=== PATIENT | male | born 1955 | race Caucasian/White ===

== ENCOUNTER 2019-01-22 10:06 | Emergency (ER) | payer OTHER ==
[2019-01-22] MEDS ORDERED: Ketorolac 30 MG/ML SDV IVPUSH ONE (11:36)
[2019-01-22] MEDS ORDERED: Metoclopramide 10 MG/2 ML SDV IVPUSH ONE (11:36)
[2019-01-22] MEDS ORDERED: Sodium Chloride 0.9% 10 ML Syringe FLUSH PRN (11:36)
[2019-01-22] MEDS ORDERED: Sodium Chloride 0.9% 1,000 ML IV ONE (11:36)
[2019-01-22 11:52] LABS: ANION GAP 12.5; CHLORIDE,CL 110 mmol/L (101-111); SODIUM,NA 138 mmol/L (135-145)
--- NOTE | 2019-01-22 13:10 | EDM.PDOC ---
Scribed by Tosha Sierra 01/22/19 [id number] for Kristan Carreon NP ED HPI GENERAL MEDICAL PROBLEM - General Chief Complaint: Headache Stated Complaint: MIGRAINE Time Seen by Provider: 01/22/19 11:30 Source of Information: Reports: Patient, RN, RN Notes Reviewed History Limitations: Reports: No Limitations - History of Present Illness INITIAL COMMENTS - FREE TEXT/NARRATIVE: Patient is a 63-year-old with a headache. He has a history of migraines that started at 3 a.m. It is on the left side of the head, stabbing, nonradiating and 9/10 in severity. No known alleviator/aggravators. He has had nausea and vomiting, no blood. He is dizzy and unsteady. This is not his typical migraine, this is worse. This is not the worst headache of his life. No aura, vision changes, numbness/weakness. HE has had no fever, chills, chest pain or shortness of breath. Onset: Today Duration: Getting Worse Location: Reports: Head Quality: Reports: Ache, Stabbing Severity: Severe Improves with: Reports: None Worsens with: Reports: None Associated Symptoms: Reports: No Other Symptoms Left Head Pain Score (Numeric/FACES): 8 - Related Data Allergies Allergy/AdvReac Type Severity Reaction Status Date / Time No Known Allergies Allergy Verified 01/22/19 10:30 Home Meds: Home Meds Levothyroxine [Synthroid] 50 mcg PO DAILY 01/22/19 [History] Ondansetron [Zofran ODT] 4 mg PO Q4HR PRN 01/22/19 [History] SUMAtriptan Succinate [Imitrex] 100 mg PO BID PRN 01/22/19 [History] Past Medical History HEENT History: Reports: Impaired Vision, Other (See Below) (migraine headache) Neurological History: Reports: Migraines - Past Surgical History Neurological Surgical History: Reports: Other (See Below) (spinal fusion) Musculoskeletal Surgical History: Reports: Other (See Below) Other Musculoskeletal Surgeries/Procedures:: neck fusion Social & Family History - Tobacco Use Smoking Status *Q: Never Smoker Second Hand Smoke Exposure: No - Caffeine Use Caffeine Use: Reports: Coffee - Recreational Drug Use Recreational Drug Use: Yes ED ROS GENERAL - Review of Systems Review Of Systems: ROS reveals no pertinent complaints other than HPI. - Physical Exam Exam: See Below Exam Limited By: No Limitations General Appearance: Alert, WD/WN, No Apparent Distress Eye Exam: Bilateral Eye: EOMI, Normal Inspection, PERRL Ears: Normal External Exam, Normal Canal, Hearing Grossly Normal, Normal TMs Nose: Normal Inspection, Normal Mucosa, No Blood Throat/Mouth: Normal Inspection, Normal Lips, Normal Teeth, Normal Gums, Normal Oropharynx, Normal Voice, No Airway Compromise Head Exam: Atraumatic, Normocephalic Neck: Normal Inspection, Supple, Non-Tender, Full Range of Motion Respiratory/Chest: No Respiratory Distress, Lungs Clear, Normal Breath Sounds, No Accessory Muscle Use, Chest Non-Tender Cardiovascular: Normal Peripheral Pulses, Regular Rate, Rhythm, No Edema, No Gallop, No JVD, No Murmur, No Rub GI/Abdominal: Normal Bowel Sounds, Soft, Non-Tender, No Organomegaly, No Distention, No Abnormal Bruit, No Mass (Male) Exam: Deferred Rectal (Males) Exam: Deferred Neuro Exam (Abbreviated): Alert, Oriented, CN II-XII Intact, Normal Cognition, Normal Gait, Normal Reflexes, No Motor/Sensory Deficits Back Exam: Normal Inspection, Full Range of Motion, NT Extremities: Normal Inspection, Normal Range of Motion, Non-Tender, No Pedal Edema, Normal Capillary Refill Psychiatric: Normal Affect Skin Exam: Warm, Dry, Intact, Normal Color, No Rash Course - Vital Signs Last Recorded V/S: Last Vital Signs Temp 96.5 F 01/22/19 10:31 Pulse 53 L 01/22/19 10:31 Resp 20 01/22/19 10:31 BP 142/75 H 01/22/19 10:31 Pulse Ox 100 01/22/19 10:31 - Orders/Labs/Meds Orders: Active Orders 24 hr Category Date Time Status Peripheral IV Care [RC] . DIRECTED Care 01/22/19 11:37 Active Sodium Chloride 0.9% [Saline Flush] Med 01/22/19 11:36 Active 10 ml FLUSH ASDIRECTED PRN Peripheral IV Insertion Adult [OM.PC] Stat Oth 01/22/19 11:35 Ordered Medication Orders Sodium Chloride (Saline Flush) 10 ml FLUSH ASDIRECTED PRN PRN Reason: Keep Vein Open Last Admin: 01/22/19 11:49 Dose: 10 ml Labs: Laboratory Tests 01/22/19 01/22/19 Range/Units 11:07 11:07 WBC 8.3 (5.0-10.0) 10^3/uL RBC 5.23 (4.6-6.2) 10^6/uL Hgb 17.2 (14.0-18.0) g/dL Hct 47.1 (40.0-54.0) % MCV 90.1 (80-100) fL MCH 32.9 (27.0-34.0) pg MCHC 36.5 H (33.0-35.0) g/dL Plt Count 181 (150-450) 10^3/uL Neut % (Auto) 89.2 H (42.2-75.2) % Lymph % (Auto) 8.2 L (20.5-50.1) % [place] % (Auto) 2.5 (2-8) % Eos % (Auto) 0.1 L (1.0-3.0) % Baso % (Auto) 0.0 (0.0-1.0) % Sodium 138 (135-145) mmol/L Potassium 3.5 L (3.6-5.0) mmol/L Chloride 110 (101-111) mmol/L Carbon Dioxide 19.0 L (21.0-31.0) mmol/L Anion Gap 12.5 BUN 16 (7-18) mg/dL Creatinine 0.8 (0.6-1.3) mg/dL Est Cr Clr Drug Dosing 83.28 mL/min Estimated GFR (MDRD) > 60 BUN/Creatinine Ratio 20.00 Glucose 128 H (74-105) mg/dL Calcium 9.2 (8.4-10.2) mg/dl Total Bilirubin 1.1 H (0.2-1.0) mg/dL AST 24 (10-42) IU/L ALT 25 (10-60) IU/L Alkaline Phosphatase 38 L (42-121) IU/L Total Protein 7.6 (6.7-8.2) g/dl Albumin 4.7 (3.2-5.5) g/dl Globulin 2.9 Albumin/Globulin Ratio 1.62 Meds: Medications Generic Name Dose Route Start Last Admin Trade Name Freq PRN Reason Stop Dose Admin Sodium Chloride 10 ml 01/22/19 11:36 01/22/19 11:49 Saline Flush FLUSH 10 ml ASDIRECTED PRN Administration Keep Vein Open Discontinued Medications Generic Name Dose Route Start Last Admin Trade Name Kathy PRN Reason Stop Dose Admin Sodium Chloride 1,000 mls @ 999 mls/hr 01/22/19 11:36 01/22/19 11:47 Normal Saline IV 01/22/19 12:36 999 mls/hr .BOLUS ONE Administration Ketorolac Tromethamine 30 mg 01/22/19 11:36 01/22/19 11:50 Toradol IVPUSH 01/22/19 11:37 30 mg ONETIME ONE Administration Metoclopramide HCl 10 mg 01/22/19 11:36 01/22/19 11:48 Reglan IVPUSH 01/22/19 11:37 10 mg ONETIME ONE Administration - Radiology Interpretation Free Text/Narrative:: Head CT: FINDINGS: Brain: There is no acute hemorrhage or ischemia, mass or extra-axial collection. Ventricles: Normal. No ventriculomegaly. Bones/joints: Unremarkable. No acute fracture. Sinuses: There is minimal maxillary sinus mucosal thickening inferiorly. Mastoid air cells: Visualized mastoid air cells are unremarkable. No mastoid effusion. Soft tissues: There is a tiny likely benign focus of anterior left frontal falcine calcification. IMPRESSION: No acute intracranial process or mass. Thank you for allowing us to participate in the care of your patient. Dictated and Authenticated by: Dalton Horton MD 01/22/2019 12:57 PM Central Time ([place] & [place]) See rad report - Re-Assessments/Exams Free Text/Narrative Re-Assessment/Exam: 01/22/19 12:28 I saw and evaluated the patient. Discussed with resident and agree with resident s findings and plan as documented in the residents note. Departure - Departure Time of Disposition: 13:07 Disposition: Home, Self-Care 01 Condition: Fair Clinical Impression: Migraine - Discharge Information *PRESCRIPTION DRUG MONITORING PROGRAM REVIEWED*: No *COPY OF PRESCRIPTION DRUG MONITORING REPORT IN PATIENT MAGDIEL: No Instructions: Migraine Headache, [id number] Forms: ED Department Discharge Additional Instructions: May try Aleve 500mg with a can of soda for headaches Continue prophylaxis medications Return if symptoms do not improve, or worsen Follow up with your primary care facility - My Orders Last 24 Hours: My Active Orders 01/22/19 11:35 Peripheral IV Insertion Adult [OM.PC] Stat 01/22/19 11:36 Sodium Chloride 0.9% [Saline Flush] 10 ml FLUSH ASDIRECTED PRN 01/22/19 11:37 Peripheral IV Care [RC] . DIRECTED - Assessment/Plan Last 24 Hours: My Active Orders 01/22/19 11:35 Peripheral IV Insertion Adult [OM.PC] Stat 01/22/19 11:36 Sodium Chloride 0.9% [Saline Flush] 10 ml FLUSH ASDIRECTED PRN 01/22/19 11:37 Peripheral IV Care [RC] . DIRECTED I have read and agree with the documentation that has been completed regarding this visit. By signing this record, I attest that the documentation was completed in my physical presence and is an accurate record of the encounter.
== END 2019-01-22 13:16 | disposition home or self-care (01) ==
LOC: DL.ED 10:06
DX: G43.909 Migraine, unspecified, not intractable, without status migrainosus (principal); Z79.899 Other long term (current) drug therapy
CPT/HCPCS: 36415; 70450; 80053; 85025; 96361; 96374; 96375; 99284; J1885; J2765; J7030